=== PATIENT | female | born 1965 | race Caucasian/White ===

== ENCOUNTER → 2016-09-12 | Outpatient (CLI) | payer BC, OTHER | LOC: RAD 11:45 | PROVIDERS: ATTEND Nurse Practitioner Family | DX: E04.1 Nontoxic single thyroid nodule (principal) ==

== ENCOUNTER → 2016-10-18 | Outpatient (CLI) | payer BC ==
--- NOTE | 2016-10-18 20:32 | Diagnostic Imaging Report ---
PROCEDURE: US Thyroid. TECHNIQUE: Multiple real-time grayscale images were obtained of the thyroid in various projections. INDICATION: Fullness around the thyroid area and superiorly in the right neck. FINDINGS: The right thyroid lobe is 4.2 x 1.8 x 1.6 cm. The left lobe is 4.4 x 1.2 x 1.3 cm. There is no focal mass identified. The area of fullness above the thyroid gland is examined. The submandibular glands are seen near the area of fullness and appear symmetric with no definite focal lesion. No significant lymphadenopathy is noted. IMPRESSION: Unremarkable exam. Dictated by: Dictated on workstation # [id number]
== END ==
LOC: RAD 12:44
PROVIDERS: ATTEND Nurse Practitioner Family
DX: E04.1 Nontoxic single thyroid nodule (principal)
CPT/HCPCS: 76536

== ENCOUNTER → 2016-10-31 | Outpatient (CLI) | payer BC ==
--- NOTE | 2016-11-01 13:10 | Diagnostic Imaging Report ---
Thyroid scan and uptake Technique: After the oral administration of 189 ?Ci of I-123 capsule, 4 hour and 24-hour uptake is measured and plantar images over the thyroid gland obtained. Indication: E04.1 FINDINGS: Thyroid uptake at 4 hours is 11 %, and the at 24 hours is 20%. Planar images demonstrate no evidence of a cold or hot nodule. IMPRESSION: Normal thyroid uptake and scan. Dictated by: Dictated on workstation # [id number]
== END ==
LOC: RAD 11:58
DX: E04.1 Nontoxic single thyroid nodule (principal)
CPT/HCPCS: 78014

== ENCOUNTER → 2016-11-10 | Outpatient (CLI) | payer BC ==
[~2016-11-10] MED LIST: CATHETER FLUSH 10 ML SYR IV PRN; IOHEXOL 350 MG/ML 100 ML (OMNIPAQUE 350) VIAL IV ONE; NS 100 ML (IVPB) BAG IV ONE
[2016-11-10 09:52] LABS: BLOOD UREA NITROGEN 10 MG/DL (7-18); BUN/CREATININE RATIO 11; GFR ESTIMATED > 60
--- NOTE | 2016-11-10 10:44 | Diagnostic Imaging Report ---
CLINICAL INDICATION: Patient has difficulty swallowing and feels like something may be in throat. Attention right side. EXAM: Axial CT scan of the neck performed with 75 cc of Omnipaque 350 IV contrast. Coronal and sagittal reformatted images are created. COMPARISON: CT scan of the neck performed with contrast dated 08/07/2006. FINDINGS: There is no significant neck soft tissue mass, fluid collection, or fat stranding. There is no significant abnormality seen in the right side of the neck beneath the BB marker. There is mild prominence of the bilateral pontine adenoid soft tissue which may be reactive. There is no measurable mass seen. Otherwise, the nasopharynx, oropharynx, hypopharynx, and laryngeal soft tissue structures are unremarkable. The oral cavity, tongue, sublingual, and submandibular regions are unremarkable. There is minimal prominence of the intraglandular ducts involving the bilateral submandibular glands measuring just under 2 mm. There is no salivary gland stone seen. Thyroid gland is unremarkable. There is no significant neck lymphadenopathy. There is calcified granuloma involving the posterior aspect of the right upper lobe. There is right perihilar and right mediastinal calcified lymph nodes. There are small degenerative spurs involving the mid cervical spine. IMPRESSION: 1: There is no significant neck soft tissue abnormality seen. There is no neck mass, lymphadenopathy, fluid collection, or fat stranding seen in the area of concern in the right neck. 2: There is nonspecific minimal prominence of the bilateral submandibular intraglandular ducts. There are no stones or mass seen. Dictated by: Dictated on workstation # [id number]
== END ==
LOC: RAD 09:16
PROVIDERS: ATTEND Otolaryngology Otolaryngology/Facial Plastic Surgery
DX: R22.1 Localized swelling, mass and lump, neck (principal)
CPT/HCPCS: 36415; 70491; 82565; 84520

== ENCOUNTER → 2017-01-31 | Outpatient (CLI) | payer BC ==
--- NOTE | 2017-01-31 14:31 | Diagnostic Imaging Report ---
CLINICAL INDICATION: Patient has right-sided neck pain with pressure and heaviness to right side of throat when swallowing. EXAM: MRI of the cervical spine performed without IV contrast. Sequences include sagittal T2, sagittal T1, sagittal STIR, and axial T2. COMPARISON: CT scan of the neck soft tissue with contrast dated 11/10/2016. FINDINGS: Limited visualization of the posterior fossa is unremarkable. Cervical spinal cord has normal cord caliber with no abnormal signal seen. Cervical spine has normal alignment with no acute fracture or dislocation. There is no significant paraspinal soft tissue abnormality. There are small anterior spurs involving the mid to lower cervical spine. These small spurs do not appear hypertrophic enough to encroach upon the hypopharynx or upper esophagus. C1-C2: There are small degenerative spurs involving the atlanto-odontoid interval anteriorly. Otherwise, this level is unremarkable. C2-C3: Unremarkable. C3-C4: There is a small posterior disc bulge. There is no significant central spinal canal or neural foramen narrowing. C4-C5: There is mild diffuse disc bulge with small left subarticular spur and mild left facet arthropathy. There is mild to moderate left neural foramen narrowing and no significant right neural foramen narrowing. There is [id number] central canal narrowing. C5-C6: There is a diffuse disc bulge with small broad posterior disc osteophyte complex and small bilateral uncinate spurs. There is minimal ligamentum flavum buckling. There is moderate central canal narrowing and [id number] bilateral neural foramen narrowing. C6-C7: There is a 5 mm perineural cyst in the right neural foraminal region. Otherwise, this level is unremarkable. C7-T1: There are small bilateral perineural cysts in the neural foraminal regions bilaterally. The largest measures 7 mm on the right. Otherwise, this level is unremarkable. IMPRESSION: There is multilevel cervical spine degenerative disc disease which is worst at the C4-C5 and C5-C6 levels. It is described in detail above. Dictated by: Dictated on workstation # [id number]
== END ==
LOC: RAD 13:11
PROVIDERS: ATTEND Otolaryngology Otolaryngology/Facial Plastic Surgery
DX: M50.321 Other cervical disc degeneration at C4-C5 level (principal); M48.02 Spinal stenosis, cervical region; M50.221 Other cervical disc displacement at C4-C5 level; M46.82 Other specified inflammatory spondylopathies, cervical region; M85.68 Other cyst of bone, other site
CPT/HCPCS: 72141

== ENCOUNTER → 2019-07-04 | Outpatient (CLI) | payer BC ==
--- NOTE | 2019-07-04 13:09 | Diagnostic Imaging Report ---
INDICATION: Acute recurrent maxillary sinusitis. Time of Exam: 1:04 PM Multiple views of the paranasal sinuses were obtained. The frontal, ethmoid, maxillary as well as sphenoid sinuses appear to be clear. No significant mucosal thickening is seen. No air-fluid levels are detected. There are no findings to suggest sinusitis. IMPRESSION: No evidence of sinusitis. Dictated by: Dictated on workstation # [id number]
== END ==
LOC: RAD 12:38
DX: J01.01 Acute recurrent maxillary sinusitis (principal)
CPT/HCPCS: 70220